=== PATIENT | female | born 1975 | race Caucasian/White ===

== ENCOUNTER → 2016-07-04 | Outpatient (CLI) | payer OTHER ==
[2016-06-24 07:44] VITALS: BP 106/78
[2016-07-04 08:38] LABS: BASOPHILS % (AUTO) 0.5 % (0.2-1.0); EOSINOPHILS % (AUTO) 0.5 % (0.9-2.9); HEMATOCRIT 40.1 % (36.0-47.0); HEMOGLOBIN 13.8 g/dL (12.0-16.0); LYMPHOCYTES # (AUTO) 1.3 X10^3/uL (1.3-2.9); MEAN CORPUSCULAR HEMOGLOBIN 29.4 pg (27.0-34.0); MEAN CORPUSCULAR HGB CONC 34.5 g/dL (33.0-35.0); MEAN CORPUSCULAR VOLUME 85.4 fL (80.0-100.0); MEAN PLATELET VOLUME 8.5 fL (7.4-11.0); MONOCYTES # (AUTO) 0.3 x10^3/uL (0.3-0.8); NEUTROPHILS # (AUTO) 4.5 x10^3/uL (2.2-4.8); PLATELET COUNT 132 X10^3/uL (150.0-450.0); RED CELL DISTRIBUTION WIDTH 13.6 % (11.6-16.5); WHITE BLOOD COUNT 6.2 X10^3/uL (3.6-10.0)
[2016-07-04 08:46] LABS: TOTAL PROTEIN,URINE 35.4 mg/dl (0-11.9)
[2016-07-04 08:47] LABS: ALBUMIN 3.3 g/dL (3.4-5.0); BLOOD UREA NITROGEN 22 mg/dL (7-18); CALCIUM 8.9 mg/dL (8.5-10.1); CHLORIDE 108 mmol/L (98-107); CHOL/HDL RATIO 3.5 (0.0-5.0); CHOLESTEROL 145 mg/dL (0-200); COR CA(FOR HYPOALB) 9.5 mg/dL (8.5-10.1); CREATININE 0.97 mg/dL (0.55-1.02); GLUCOSE 88 mg/dL (65-99); HDL CHOLESTEROL 42 mg/dL (40-60); PHOSPHORUS 4.3 mg/dL (2.6-4.7); SODIUM 145 mmol/L (136-145); TRIGLYCERIDES 103 mg/dL (0-150); URIC ACID 4.8 mg/dL (2.6-6.0); eGFR BLACK RACES > 60 (>60); eGFR NON BLACK RACES > 60 (>60)
[2016-07-04 08:59] LABS: CREATININE,URINE 77.39 mg/dL (30-125)
== END ==
LOC: LAB 07:58
PROVIDERS: ATTEND Internal Medicine
DX: I12.9 Hypertensive chronic kidney disease with stage 1 through stage 4 chronic kidney disease, or unspecified chronic kidney disease (principal); N18.3 Chronic kidney disease, stage 3 (moderate); R80.8 Other proteinuria
CPT/HCPCS: 36415; 80061; 80069; 82570; 84157; 84550; 85025

== ENCOUNTER → 2016-10-09 | Outpatient (CLI) | payer OTHER ==
[2016-06-24 07:44] VITALS: BP 106/78
[~2016-10-09] MED LIST: NS 100 ML IV 100 ML IV ONE
--- NOTE | 2016-10-09 10:01 | CT ---
CT abdomen with and without contrast Indication: Hematuria, polycystic kidney disease Technique: Helical CT images of the abdomen were obtained with and without intravenous contrast. Ref ormatted images in the coronal and sagittal planes were also generated for review. Comparison: CT abdomen and pelvis without contrast April 26, 2015 Findings: The visualized lung bases are clear. No aggressive osseous lesions are identified. Noncontrast images of the abdomen demonstrate multiple nonobstructing bilateral renal stones, the la rgest of which measures 3 mm within the mid left kidney. No hydroureteronephrosis is identified. Bot h kidneys are again enlarged and contain numerous cysts of varying size and complexity, several whic h appear slightly more hyperdense on precontrast images, suggesting interval hemorrhage. These lesio ns remain too small to accurately characterize on postcontrast images. Multiple hypoattenuating hepatic lesions, compatible with cysts appear unchanged. The gallbladder is surgically absent. The spleen, pancreas and adrenal glands are unremarkable. There is very mild diverticulosis of the distal descending colon without evidence of acute inflammat ion. Postsurgical changes the left upper quadrant are again noted. The remaining visualized abdomina l bowel loops are unremarkable. There is minimal calcification of non aneurysmal aorta. No free air, free fluid or lymphadenopathy is identified. Impression: Suggestion of interval hemorrhage involving multiple bilateral renal cysts, which likely accounts fo r the patient's hematuria. Otherwise, stable findings of polycystic kidney disease and nonobstructing bilateral nephrolithiasis . Reported By:
== END ==
LOC: RAD 07:56
PROVIDERS: ATTEND Internal Medicine
DX: R31.9 Hematuria, unspecified (principal); Q61.8 Other cystic kidney diseases
CPT/HCPCS: 74170; A4222

== ENCOUNTER → 2016-10-19 | Outpatient (CLI) | payer OTHER ==
[2016-06-24 07:44] VITALS: BP 106/78
--- NOTE | 2016-10-19 15:56 | MRI ---
HISTORY: Chronic pain syndrome. Study: MRI lumbar spine without contrast. Comparison: MRI lumbar spine dated April 13, 2014. Technique: Multiplanar multi-sequence MRI of the lumbar spine was obtained. Sagittal T1, sagittal T 2, and stir weighted images, axial T1, and axial T2 images were obtained. Findings: Anatomic alignment without acute fracture or listhesis. Multilevel disc desiccation without signific ant disc height loss. The visualized bone marrow signal is unchanged and appears normal. The conus m edullaris terminates at L1. Polycystic kidney disease is again seen. Remaining soft tissues are unre markable. L1 -- L2: No significant disc bulge, neural foraminal narrowing, or spinal canal stenosis. L2 -- L3: Disc bulge that extends into the lateral recesses causing mild left neural foraminal narro wing. No significant right neural foraminal narrowing or spinal canal stenosis. Posterior annular te ar. L3 -- L4: Broad-based disc bulge that extends into the lateral recesses causing mild bilateral neura l foraminal narrowing. No significant spinal canal stenosis. L4 -- L5: Broad-based disc bulge that extends into the lateral recesses causing moderate bilateral n eural foraminal narrowing. No significant spinal canal stenosis. Suggestion of a posterior annular t ear. L5 -- S1: Broad-based disc bulge without significant neural foraminal narrowing or spinal canal sten osis. IMPRESSION: Multilevel degenerative changes of the lumbar spine which is not significantly changed f rom prior comparison. Reported By:
== END | disposition home or self-care (01) ==
LOC: RAD 13:45
PROVIDERS: ATTEND Internal Medicine
DX: G89.4 Chronic pain syndrome (principal); M51.16 Intervertebral disc disorders with radiculopathy, lumbar region
CPT/HCPCS: 72146; 72148

== ENCOUNTER → 2016-10-24 | Outpatient (CLI) | payer OTHER ==
[2016-06-24 07:44] VITALS: BP 106/78
[2016-10-24 09:51] LABS: BASOPHILS % (AUTO) 0.6 % (0.2-1.0); EOSINOPHILS # (AUTO) 0.1 x10^3/uL (0.0-0.2); EOSINOPHILS % (AUTO) 0.8 % (0.9-2.9); HEMATOCRIT 40.2 % (36.0-47.0); HEMOGLOBIN 14.1 g/dL (12.0-16.0); LYMPHOCYTES # (AUTO) 1.4 X10^3/uL (1.3-2.9); LYMPHOCYTES % (AUTO) 21.7 % (21.0-51.0); MEAN CORPUSCULAR HEMOGLOBIN 30.7 pg (27.0-34.0); MEAN CORPUSCULAR HGB CONC 35.1 g/dL (33.0-35.0); MEAN CORPUSCULAR VOLUME 87.3 fL (80.0-100.0); MEAN PLATELET VOLUME 8.2 fL (7.4-11.0); MONOCYTES # (AUTO) 0.3 x10^3/uL (0.3-0.8); MONOCYTES % (AUTO) 4.2 % (0.0-13.0); NEUTROPHILS # (AUTO) 4.8 x10^3/uL (2.2-4.8); NEUTROPHILS % (AUTO) 72.7 % (42.0-75.0); PLATELET COUNT 139 X10^3/uL (150.0-450.0); RED CELL DISTRIBUTION WIDTH 13.2 % (11.6-16.5); WHITE BLOOD COUNT 6.6 X10^3/uL (3.6-10.0)
[2016-10-24 10:10] LABS: ALANINE AMINOTRANSFERASE 15 Units/L (12-78); ALBUMIN 3.4 g/dL (3.4-5.0); ALKALINE PHOSPHATASE 46 Units/L (46-116); ASPARTATE AMINO TRANSFERASE 14 Units/L (15-37); BILIRUBIN,DIRECT 0.13 mg/dL (0-0.2); BLOOD UREA NITROGEN 19 mg/dL (7-18); CALCIUM 8.6 mg/dL (8.5-10.1); CARBON DIOXIDE 27.1 mmol/L (21-32); CHLORIDE 110 mmol/L (98-107); CHOL/HDL RATIO 2.6 (0.0-5.0); CHOLESTEROL 138 mg/dL (0-200); CREATININE 0.91 mg/dL (0.55-1.02); GLUCOSE 86 mg/dL (65-99); HDL CHOLESTEROL 54 mg/dL (40-60); PHOSPHORUS 3.7 mg/dL (2.6-4.7); SODIUM 144 mmol/L (136-145); TOTAL PROTEIN 6.6 g/dL (6.4-8.2); TRIGLYCERIDES 112 mg/dL (0-150); eGFR BLACK RACES > 60 (>60); eGFR NON BLACK RACES > 60 (>60)
== END ==
LOC: LAB 09:30
PROVIDERS: ATTEND Internal Medicine
DX: N18.1 Chronic kidney disease, stage 1 (principal); Q61.2 Polycystic kidney, adult type; Z79.899 Other long term (current) drug therapy
CPT/HCPCS: 36415; 80061; 80069; 80076; 85025

== ENCOUNTER → 2016-12-19 | Outpatient (CLI) | payer OTHER ==
[2016-06-24 07:44] VITALS: BP 106/78
--- NOTE | 2016-12-21 12:53 | RAD ---
HISTORY: Spondylosis lumbar region. Study: 4 views of the lumbar spine. Comparison: CT lumbar spine dated September 12, 2012. Findings: 5 non-rib bearing lumbar vertebra. No acute fracture or listhesis. Multilevel facet arthrosis and s mall anterior disc osteophyte complexes. Mild disc space narrowing at L2-L3. Mild levocurvature of th e lumbar spine, which may represent positioning versus muscle spasm. Otherwise, the vertebral body he ights and disc spaces are normal. The SI joints are normal. The soft tissue are unremarkable. Surgica l clips in the right upper quadrant. IMPRESSION: Chronic findings as above. Reported By:
== END ==
LOC: RAD 13:59
PROVIDERS: ATTEND Neurological Surgery
DX: M47.896 Other spondylosis, lumbar region (principal)
CPT/HCPCS: 72110

== ENCOUNTER → 2017-01-22 | Outpatient (CLI) | payer OTHER ==
[2016-06-24 07:44] VITALS: BP 106/78
[2017-01-22 08:26] LABS: BILIRUBIN,URINE NEGATIVE (NEGATIVE); BLOOD/HEMOGLOBIN,URINE 5+ (NEGATIVE); GLUCOSE, URINE NEGATIVE (NEGATIVE); KETONES,URINE NEGATIVE (NEGATIVE); LEUKOCYTE ESTERASE ,URINE 1+ (NEGATIVE); NITRITES,URINE NEGATIVE (NEGATIVE); PROTEIN,URINE 3+ (NEGATIVE); UROBILINOGEN,URINE NORMAL (NORMAL)
[2017-01-22 08:29] LABS: BASOPHILS % (AUTO) 0.6 % (0.2-1.0); EOSINOPHILS # (AUTO) 0.1 x10^3/uL (0.0-0.2); EOSINOPHILS % (AUTO) 0.8 % (0.9-2.9); HEMATOCRIT 40.3 % (36.0-47.0); HEMOGLOBIN 14.1 g/dL (12.0-16.0); LYMPHOCYTES # (AUTO) 1.4 X10^3/uL (1.3-2.9); MEAN CORPUSCULAR HEMOGLOBIN 30.8 pg (27.0-34.0); MEAN CORPUSCULAR VOLUME 87.9 fL (80.0-100.0); MEAN PLATELET VOLUME 8.6 fL (7.4-11.0); MONOCYTES # (AUTO) 0.3 x10^3/uL (0.3-0.8); MONOCYTES % (AUTO) 5.1 % (0.0-13.0); NEUTROPHILS # (AUTO) 5.1 x10^3/uL (2.2-4.8); NEUTROPHILS % (AUTO) 73.5 % (42.0-75.0); PLATELET COUNT 123 X10^3/uL (150.0-450.0); RED BLOOD COUNT 4.58 X10^6/uL (3.5-5.4); RED CELL DISTRIBUTION WIDTH 13.2 % (11.6-16.5); WHITE BLOOD COUNT 6.9 X10^3/uL (3.6-10.0)
[2017-01-22 08:37] LABS: APPEARANCE,URINE SLIGHTLY HAZY (CLEAR); BACTERIA,URINE TRACE /HPF (NEGATIVE); COLOR,URINE YELLOW (YELLOW); MUCUS,URINE FEW /HPF (NEGATIVE); RBC,URINE 15-20 /HPF (NEGATIVE); SQUAMOUS EPITHELIAL CELL,UR FEW /HPF (NEGATIVE)
[2017-01-22 08:42] LABS: ALBUMIN 3.4 g/dL (3.4-5.0); BLOOD UREA NITROGEN 15 mg/dL (7-18); CALCIUM 9.2 mg/dL (8.5-10.1); CARBON DIOXIDE 28.2 mmol/L (21-32); CHLORIDE 108 mmol/L (98-107); CHOL/HDL RATIO 2.7 (0.0-5.0); CHOLESTEROL 131 mg/dL (0-200); CREATININE 1.05 mg/dL (0.55-1.02); HDL CHOLESTEROL 48 mg/dL (40-60); PHOSPHORUS 3.5 mg/dL (2.6-4.7); SODIUM 144 mmol/L (136-145); TRIGLYCERIDES 115 mg/dL (0-150); URIC ACID 4.3 mg/dL (2.6-6.0); eGFR BLACK RACES > 60 (>60); eGFR NON BLACK RACES > 60 (>60)
== END ==
LOC: LAB 07:55
PROVIDERS: ATTEND Internal Medicine
DX: I12.9 Hypertensive chronic kidney disease with stage 1 through stage 4 chronic kidney disease, or unspecified chronic kidney disease (principal); N18.1 Chronic kidney disease, stage 1; Q61.3 Polycystic kidney, unspecified
CPT/HCPCS: 36415; 80061; 80069; 81001; 84550; 85025

== ENCOUNTER → 2017-02-05 | Outpatient (CLI) | payer OTHER ==
[2016-06-24 07:44] VITALS: BP 106/78
--- NOTE | 2017-02-05 11:55 | RAD ---
Examination: Lumbar spine, five views History: Chronic back pain Comparison reference: 12/19/2016 Findings: There is a mild levoscoliosis. Normal vertebral alignment. Small marginal osteophytes at mu ltiple levels. No evidence for fracture, bone destruction or significant localized disc deformity. Th ere is no evidence for instability or subluxation on lateral views in flexion/extension. There is a 3 .0 mm calcification projected over the left flank. Impression: 1. Lumbar scoliosis. 2. Multilevel degenerative spondylosis, no acute process identified. 3. Small left flank calcification possibly intrarenal calculus. Reported By:
== END | disposition home or self-care (01) | DRG 552 ==
LOC: RAD 11:19
PROVIDERS: ATTEND Neurological Surgery
DX: M47.896 Other spondylosis, lumbar region (principal); M41.86 Other forms of scoliosis, lumbar region
CPT/HCPCS: 72110

== ENCOUNTER → 2017-02-25 | Outpatient (CLI) | payer OTHER ==
[2016-06-24 07:44] VITALS: BP 106/78
[2017-02-25 11:36] LABS: BASOPHILS % (AUTO) 0.4 % (0.2-1.0); EOSINOPHILS % (AUTO) 0.6 % (0.9-2.9); HEMATOCRIT 39.6 % (36.0-47.0); HEMOGLOBIN 13.9 g/dL (12.0-16.0); LYMPHOCYTES # (AUTO) 1.1 X10^3/uL (1.3-2.9); LYMPHOCYTES % (AUTO) 15.3 % (21.0-51.0); MEAN CORPUSCULAR HGB CONC 35.1 g/dL (33.0-35.0); MEAN CORPUSCULAR VOLUME 88.3 fL (80.0-100.0); MEAN PLATELET VOLUME 8.3 fL (7.4-11.0); MONOCYTES # (AUTO) 0.3 x10^3/uL (0.3-0.8); MONOCYTES % (AUTO) 3.7 % (0.0-13.0); NEUTROPHILS # (AUTO) 5.7 x10^3/uL (2.2-4.8); PLATELET COUNT 134 X10^3/uL (150.0-450.0); RED BLOOD COUNT 4.48 X10^6/uL (3.5-5.4); RED CELL DISTRIBUTION WIDTH 12.9 % (11.6-16.5); WHITE BLOOD COUNT 7.1 X10^3/uL (3.6-10.0)
[2017-02-25 11:42] LABS: BLOOD UREA NITROGEN 21 mg/dL (7-18); CALCIUM 8.7 mg/dL (8.5-10.1); CARBON DIOXIDE 27.8 mmol/L (21-32); CHLORIDE 109 mmol/L (98-107); CREATININE 1.24 mg/dL (0.55-1.02); SODIUM 145 mmol/L (136-145); eGFR BLACK RACES > 60 (>60); eGFR NON BLACK RACES 51 (>60)
--- NOTE | 2017-02-25 16:09 | RAD ---
Examination: Chest, PA and lateral views History: Surgical clearance Comparison reference 03/22/2016. Findings: Continued normal heart size with clear lungs and pleural spaces. Impression: No acute or significant chest abnormality demonstrated. Reported By:
== END ==
LOC: LAB 11:15
PROVIDERS: ATTEND Plastic Surgery Plastic Surgery Within the Head and Neck
DX: Z01.818 Encounter for other preprocedural examination (principal); Z01.810 Encounter for preprocedural cardiovascular examination; Z01.811 Encounter for preprocedural respiratory examination; Z41.1 Encounter for cosmetic surgery
CPT/HCPCS: 36415; 71020; 80048; 85025; 93005; 93010

== ENCOUNTER 2017-03-07 19:37 | Emergency (ER) | payer OTHER ==
[2017-03-07 19:48] VITALS: BP 95/73; BMI 20.7
--- NOTE | 2017-03-09 14:37 | DR.GENAD ---
HPI - PCP Primary Care Physician: NAOMI KIM - Complaint/Symptoms Chief Complaint Doctors Comments: I agree with statement. Patient states that she has continuous drainage from the incision site on the right, tube filled x once. Admits to 100 to 150cc blood drained since dishcarged. Chief Complaint:: BLEEDING FROM INCISION SITE. HAD TUMMY TUCK WITH SCAR TISSUE MASS REMOVAL TODAY, DISCHARGED AND HOME AROUND 5PM TODAY. NOTE ABD BINDER INTACT WITH BLOOD NOTED TO THE BINDER. UNDERNEATH BINDER NOTED KRISTAN DRAIN TO RIGHT SIDE OF ABD WALL. NOTED ADHESIVE DRESSING INTACT. ACTIVE BLEEDING NOTED COMING FROM LEFT ABD WALL UNDERNEATH ADHESIVE DRESSING. - Source History Provided: Patient, EMS - Mode of Arrival Mode of Arrival: EMS - Timing Onset of Chief Complaint: 03/07/17 PMH - PMH Past Medical History: Yes Past Medical History: Anxiety, COPD, Hypertension, Kidney Stones, Liver Disease Past Surgical History: Yes Surgical History: Cholecystectomy, [employer] Surgery, Hysterectomy Past Surgical History Comment: TUMMY TUCK WITH SCAR TISSUE MASS REMOVAL - Family History History of Family Medical Conditions: Yes Family Medical History: Diabetes Mellitus, Cancer, [place], Hypertension - Social History Type of Tobacco Use: Cigarettes Alcohol Use: None Do you use any recreational Drugs:: No Lives With: Family Lives Where: Home - infectious screening Have you traveled outside the country in the last 6 months?: No Isolation: Standard ROS - Review of Systems Eyes: No Symptoms Reported ENTM: No Symptoms Reported Respiratoy: No Symptoms Reported Cardiovascular: No Symptoms Reported Gastrointestinal/Abdominal: No Symptoms Reported Genitourinary: No Symptoms Reported Neurological: No Symptoms Reported Musculoskeletal: Other (drainage tube right lower quadrant with KRISTAN drain at 50cc ) Integumentary: No Symptoms Reported, Change in Hair/Nails Hematologic/Lymphatic: No Symptoms Reported Endocrine: No Symptoms Reported Psychiatric: No Symptoms Reported All Other Systems: Reviewed and Negative PE - Vital Signs Vitals: Temperature 97.3 F Pulse Rate 80 Respiratory Rate 18 Blood Pressure [Left Arm] 141/86 Blood Pressure 95/73 O2 Sat by Pulse Oximetry 100 - General Limitations: No Limitations General Appearance: Alert, In No Apparent Distress - Head Head Exam: Normal Inspection, Atraumatic - Eyes Eye exam: Normal Appearance, PERRL, EOMI - ENT ENT Exam: Normal Exam External Ear Exam: Normal External Inspection TM/Canal Exam: Bilateral Normal Nose Exam: Normal Nose Exam Mouth Exam: Normal Inspection Throat Exam: Normal Inspection - Neck Neck Exam: Normal Inspection, Full ROM - Chest Chest Inspection: Normal Inspection - Respiratory Respiratory Exam: Normal Lung Sounds Bilat Respiratory Exam: Bilateral Clear to Auscultation - Cardiovascular Cardiovascular Exam: Regular Rate - Abdominal Exam Abdominal Exam: Normal Inspection, Normal Bowel Sounds Abdominal Tenderness: Other (Drain setup right lower quadrant 50ml of blood measured, left side with blood soaked bandage) Course - Consultation Consultation Comments: Patient surgeor called and informed of drainage; he stated that this is not unusal for the surgery she had and the volume of drainage is normal. Have her to contact the office in the AM. - Education/Counseling Educated On: Treatment, Diagnosis, Prognosis, Needs for Follow Up - Diagnosis Discharge Problem: Post-op bleeding Qualifiers: Surgical complication system/body Area: subcutaneous tissue Procedure type: non -dermatologic Qualified Code(s): L76.22 - Postprocedural hemorrhage of skin and subcutaneous tissue following other procedure - Discharge Plan Disposition: 01 HOME, SELF-CARE Condition: Stable - Follow ups/Referrals Follow ups/Referrals: [facility],None [Primary Care Provider] - 3 days - Instructions Instructions: Outpatient Surgery Guidelines, Adult, Surgical Drain Home Care Additional Instructions: FOLLOW UP WITH YOUR SURGEON, DR.BILL KIM, TOMORROW IN THE OFFICE INSTRUCTED BY THE [employer] SURGEON . CONTINUE FOLLOWING YOUR DISCHARGE INSTRUCTIONS GIVEN PER DR.BILL KIM.
== END 2017-03-07 20:44 | disposition home or self-care (01) ==
LOC: ER 19:45
DX: L76.22 Postprocedural hemorrhage of skin and subcutaneous tissue following other procedure (principal)
CPT/HCPCS: 99282

== ENCOUNTER → 2017-04-23 | Outpatient (CLI) | payer OTHER ==
[2017-04-23 10:16] LABS: CREATININE,URINE 75.74 mg/dL (29-226); TOTAL PROTEIN,URINE 53.4 mg/dl (0-11.9)
[2017-04-23 10:22] LABS: BASOPHILS % (AUTO) 0.7 % (0.2-1.0); EOSINOPHILS # (AUTO) 0.1 x10^3/uL (0.0-0.2); EOSINOPHILS % (AUTO) 1.5 % (0.9-2.9); HEMATOCRIT 38.3 % (36.0-47.0); HEMOGLOBIN 13.2 g/dL (12.0-16.0); MEAN CORPUSCULAR HEMOGLOBIN 29.7 pg (27.0-34.0); MEAN CORPUSCULAR HGB CONC 34.5 g/dL (33.0-35.0); MEAN PLATELET VOLUME 7.4 fL (7.4-11.0); MONOCYTES # (AUTO) 0.2 x10^3/uL (0.3-0.8); MONOCYTES % (AUTO) 4.9 % (0.0-13.0); NEUTROPHILS % (AUTO) 68.9 % (42.0-75.0); PLATELET COUNT 149 X10^3/uL (150.0-450.0); RED BLOOD COUNT 4.46 X10^6/uL (3.5-5.4); RED CELL DISTRIBUTION WIDTH 13.8 % (11.6-16.5); WHITE BLOOD COUNT 4.3 X10^3/uL (3.6-10.0)
[2017-04-23 10:29] LABS: ALBUMIN 3.3 g/dL (3.4-5.0); BLOOD UREA NITROGEN 25 mg/dL (7-18); CALCIUM 9.1 mg/dL (8.5-10.1); CARBON DIOXIDE 29.2 mmol/L (21-32); CHLORIDE 107 mmol/L (98-107); COR CA(FOR HYPOALB) 9.7 mg/dL (8.5-10.1); CREATININE 0.95 mg/dL (0.55-1.02); PHOSPHORUS 4.7 mg/dL (2.6-4.7); SODIUM 144 mmol/L (136-145); URIC ACID 4.5 mg/dL (2.6-6.0); eGFR BLACK RACES > 60 (>60); eGFR NON BLACK RACES > 60 (>60)
== END ==
LOC: LAB 09:40
PROVIDERS: ATTEND Internal Medicine
DX: N18.3 Chronic kidney disease, stage 3 (moderate) (principal); R80.8 Other proteinuria
CPT/HCPCS: 36415; 80069; 82570; 84157; 84550; 85025

== ENCOUNTER → 2017-07-22 | Outpatient (CLI) | payer OTHER ==
[2017-07-22 10:11] LABS: BASOPHILS % (AUTO) 0.4 % (0.2-1.0); EOSINOPHILS % (AUTO) 0.6 % (0.9-2.9); HEMATOCRIT 41.2 % (36.0-47.0); HEMOGLOBIN 14.8 g/dL (12.0-16.0); LYMPHOCYTES # (AUTO) 1.4 X10^3/uL (1.3-2.9); LYMPHOCYTES % (AUTO) 20.7 % (21.0-51.0); MEAN CORPUSCULAR HEMOGLOBIN 31.1 pg (27.0-34.0); MEAN CORPUSCULAR HGB CONC 35.8 g/dL (33.0-35.0); MEAN CORPUSCULAR VOLUME 86.7 fL (80.0-100.0); MEAN PLATELET VOLUME 8.2 fL (7.4-11.0); MONOCYTES # (AUTO) 0.3 x10^3/uL (0.3-0.8); MONOCYTES % (AUTO) 4.5 % (0.0-13.0); NEUTROPHILS # (AUTO) 4.9 x10^3/uL (2.2-4.8); NEUTROPHILS % (AUTO) 73.8 % (42.0-75.0); PLATELET COUNT 127 X10^3/uL (150.0-450.0); RED BLOOD COUNT 4.75 X10^6/uL (3.5-5.4); RED CELL DISTRIBUTION WIDTH 13.8 % (11.6-16.5); WHITE BLOOD COUNT 6.6 X10^3/uL (3.6-10.0)
[2017-07-22 10:14] LABS: ALBUMIN 3.7 g/dL (3.4-5.0); BLOOD UREA NITROGEN 24 mg/dL (7-18); CALCIUM 8.7 mg/dL (8.5-10.1); CARBON DIOXIDE 31.8 mmol/L (21-32); CHLORIDE 107 mmol/L (98-107); CHOLESTEROL 154 mg/dL (0-200); CREATININE 1.12 mg/dL (0.55-1.02); HDL CHOLESTEROL 52 mg/dL (40-60); PHOSPHORUS 4.8 mg/dL (2.6-4.7); SODIUM 144 mmol/L (136-145); TRIGLYCERIDES 105 mg/dL (0-150); eGFR BLACK RACES > 60 (>60); eGFR NON BLACK RACES 57 (>60)
[2017-07-22 10:16] LABS: BILIRUBIN,URINE NEGATIVE (NEGATIVE); BLOOD/HEMOGLOBIN,URINE 2+ (NEGATIVE); GLUCOSE, URINE NEGATIVE (NEGATIVE); KETONES,URINE NEGATIVE (NEGATIVE); LEUKOCYTE ESTERASE ,URINE 1+ (NEGATIVE); NITRITES,URINE NEGATIVE (NEGATIVE); PROTEIN,URINE 3+ (NEGATIVE); UROBILINOGEN,URINE NORMAL (NORMAL)
[2017-07-22 11:16] LABS: APPEARANCE,URINE CLEAR (CLEAR); COLOR,URINE YELLOW (YELLOW)
[2017-07-22 11:17] LABS: AMORPHOUS SEDIMENT,UR TRACE /HPF (NEGATIVE); BACTERIA,URINE TRACE /HPF (NEGATIVE); RBC,URINE 0-2 /HPF (NONE SEEN); SQUAMOUS EPITHELIAL CELL,UR MANY /HPF (NEGATIVE)
[2017-07-22 11:18] LABS: HYALINE CASTS, URINE RARE /LPF (NEGATIVE); MUCUS,URINE MODERATE /HPF (NEGATIVE)
== END ==
LOC: LAB 09:36
PROVIDERS: ATTEND Internal Medicine
DX: I12.9 Hypertensive chronic kidney disease with stage 1 through stage 4 chronic kidney disease, or unspecified chronic kidney disease (principal); N18.3 Chronic kidney disease, stage 3 (moderate)
CPT/HCPCS: 36415; 80061; 80069; 81001; 85025